=== PATIENT | male | born 1985 | race Caucasian/White ===

== ENCOUNTER → 2017-04-19 | Outpatient (REF) ==
[~2017-04-19] MED LIST: CYCLOBENZAPRINE10 MG PO; IBUPROFEN800 MG PO; LORTAB 7.5/5001 TAB PO; MOTRIN 600600 MG/TAB PO; NO HOME MEDICATIONS
== END ==
LOC: WSOH 08:22
DX: Z01.89 Encounter for other specified special examinations (principal)
CPT/HCPCS: G0463